=== PATIENT | female | born 1975 | race Caucasian/White ===

== ENCOUNTER 2019-09-22 05:34 | Emergency (ER) | payer OTHER, MEDICAID ==
[2019-09-22] MEDS ORDERED: Ketorolac 30 MG/ML SDV IVPUSH ONE (06:00)
[2019-09-22] MEDS ORDERED: diphenhydrAMINE 50 MG/ML SDV IVPUSH ONE (06:00)
[2019-09-22] MEDS ORDERED: Prochlorperazine 10 MG/2 ML SDV IVPUSH ONE (06:00)
[2019-09-22] MEDS ORDERED: Sodium Chloride 0.9% 1,000 ML IV ONE (06:01)
--- NOTE | 2019-09-22 06:01 | EDM.PDOC ---
ED HPI GENERAL MEDICAL PROBLEM - General Chief Complaint: Headache Stated Complaint: MIGRAINE, NAUSEA, VOMING, FEVER Time Seen by Provider: 09/22/19 05:56 Source of Information: Reports: Patient History Limitations: Reports: No Limitations - History of Present Illness INITIAL COMMENTS - FREE TEXT/NARRATIVE: States that she has a headache fever sore throat cough. Patient also has a history of migraines. Patient unable to take her migraine medicine. Patient also states that her boyfriend is feeling the same way she is. 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, Aspirin, NSAIDS head Pain Score (Numeric/FACES): 10 - Related Data Allergies Allergy/AdvReac Type Severity Reaction Status Date / Time No Known Allergies Allergy Verified 09/22/19 05:35 Home Meds: Home Meds ALPRAZolam [Alprazolam ER] 1 mg PO BID 09/22/19 [History] Ergocalciferol (Vitamin D2) [Vitamin D2] 50,000 units PO DAILY 09/22/19 [History ] FLUoxetine HCl [Prozac] 40 mg PO DAILY 09/22/19 [History] Folic Acid 2 mg PO DAILY 09/22/19 [History] Levothyroxine 112 mcg PO DAILY 09/22/19 [History] Past Medical History Cardiovascular History: Reports: High Cholesterol Musculoskeletal History: Reports: RA Neurological History: Reports: Migraines Psychiatric History: Reports: Anxiety, Depression Social & Family History - Family History Family Medical History: Noncontributory ED ROS GENERAL - Review of Systems Review Of Systems: See Below Constitutional: Reports: Weakness HEENT: Reports: Throat Pain Respiratory: Reports: Cough Cardiovascular: Reports: No Symptoms Endocrine: Reports: No Symptoms GI/Abdominal: Reports: Nausea, Vomiting : Reports: No Symptoms Musculoskeletal: Reports: Muscle Pain Skin: Reports: No Symptoms Neurological: Reports: Headache Psychiatric: Reports: No Symptoms Hematologic/Lymphatic: Reports: No Symptoms Immunologic: Reports: No Symptoms - Physical Exam Exam: See Below Exam Limited By: No Limitations General Appearance: Alert, WD/WN, Mild Distress Eye Exam: Bilateral Eye: PERRL Ears: Normal External Exam Nose: Normal Inspection Throat/Mouth: Normal Inspection Head Exam: Atraumatic, Normocephalic Neck: Normal Inspection, Supple, Non-Tender, Full Range of Motion Respiratory/Chest: No Respiratory Distress, Lungs Clear, Normal Breath Sounds, No Accessory Muscle Use Cardiovascular: Normal Peripheral Pulses, Regular Rate, Rhythm, No Edema GI/Abdominal: Normal Bowel Sounds (Female) Exam: Deferred Rectal (Female) Exam: Deferred Neuro Exam (Abbreviated): Alert, Oriented, CN II-XII Intact, Normal Cognition, Normal Reflexes, No Motor/Sensory Deficits Back Exam: Normal Inspection Extremities: Normal Inspection Psychiatric: Normal Affect Skin Exam: Warm, Dry, Intact Course - Vital Signs Text/Narrative:: she was negative for influenza and for strep. She feels much better with fluids and medication will be discharging patient diagnosis migraine Last Recorded V/S: Last Vital Signs Temp 97.7 F 09/22/19 05:40 Pulse 89 09/22/19 05:40 Resp 18 09/22/19 05:40 BP 133/84 09/22/19 05:40 Pulse Ox 96 09/22/19 05:40 - Orders/Labs/Meds Orders: Active Orders 24 hr Category Date Time Status CULTURE STREP A CONFIRMATION [] Stat Lab 09/22/19 05:53 Results STREP SCRN A RAPID W CULT CONF [] Stat Lab 09/22/19 05:53 Results Meds: Medications Discontinued Medications Generic Name Dose Route Start Last Admin Trade Name Sylvia PRN Reason Stop Dose Admin Diphenhydramine HCl 50 mg 09/22/19 06:00 09/22/19 06:05 Benadryl IVPUSH 09/22/19 06:01 50 mg ONETIME ONE Administration Sodium Chloride 1,000 mls @ 999 mls/hr 09/22/19 06:01 09/22/19 06:05 Normal Saline IV 09/22/19 07:01 999 mls/hr .Bolus ONE Administration Ketorolac Tromethamine 30 mg 09/22/19 06:00 09/22/19 06:06 Toradol IVPUSH 09/22/19 06:01 30 mg ONETIME ONE Administration Prochlorperazine Edisylate 10 mg 09/22/19 06:00 09/22/19 06:06 Compazine IVPUSH 09/22/19 06:01 10 mg ONETIME ONE Administration Departure - Departure Time of Disposition: 07:10 Disposition: Home, Self-Care 01 Condition: Good Clinical Impression: Migraine - Discharge Information Instructions: Migraine Headache, [id number] Referrals: Quentin Cano [Primary Care Provider] - Forms: ED Department Discharge Sepsis Event Note - Evaluation Sepsis Screening Result: No Definite Risk - Focused Exam Vital Signs: Vital Signs Temp Pulse Resp BP Pulse Ox 09/22/19 05:40 97.7 F 89 18 133/84 96 Date Exam was Performed: 09/22/19 Time Exam was Performed: 07:09 - My Orders Last 24 Hours: My Active Orders 09/22/19 05:53 CULTURE STREP A CONFIRMATION [RM] Stat STREP SCRN A RAPID W CULT CONF [RM] Stat - Assessment/Plan Last 24 Hours: My Active Orders 09/22/19 05:53 CULTURE STREP A CONFIRMATION [RM] Stat STREP SCRN A RAPID W CULT CONF [RM] Stat
== END 2019-09-22 07:27 | disposition home or self-care (01) ==
LOC: MW.ED 05:34
DX: G43.909 Migraine, unspecified, not intractable, without status migrainosus (principal); E78.00 Pure hypercholesterolemia, unspecified; M06.9 Rheumatoid arthritis, unspecified; F41.9 Anxiety disorder, unspecified; F32.9 Major depressive disorder, single episode, unspecified; Z79.899 Other long term (current) drug therapy
CPT/HCPCS: 87081; 87804; 87880; 96361; 96374; 96375; 99284; J0780; J1200; J1885; J7030

== ENCOUNTER 2020-07-05 07:56 | Day surgery (SDC) | payer OTHER, MEDICAID ==
[2020-07-02 10:12] LABS: BLOOD UREA NITROGEN,BUN 15 mg/dL (7.0-18.0); CARBON DIOXIDE,CO2 26.9 mmol/L (21.0-32.0); CHLORIDE,CL 103 mmol/L (98-107); GLUCOSE RANDOM 95 mg/dL (74-106); POTASSIUM,K 4.5 mmol/L (3.5-5.1); SODIUM,NA 137 mmol/L (136-145)
[~2020-07-05 07:56] MED LIST: Fluorescein 5 ML Vial ONE; Sodium Chloride 0.9% 10 ML SDV IV PRN; Sodium Chloride 0.9% 10 ML Syringe FLUSH PRN; Sodium Chloride 0.9% 2.5 ML Syringe FLUSH PRN; ceFAZolin 2 GM in Premix Bag 1 BAG IV ONE
[2020-07-05] MEDS: Lactated Ringers 1,000 ML IV SCH ×2 (08:25→13:18)
--- NOTE | 2020-07-05 08:57 | PCM.PREANE ---
Preanesthetic Assessment - Anesthesia/Transfusion/Family Hx Anesthesia History: Prior Anesthesia Without Reaction Other Type of Anesthesia Reaction Comment: "sometimes have a hard time waking up" Family History of Anesthesia Reaction: No Transfusion History: No Prior Transfusion(s) Intubation History: Unknown - Review of Systems General: No Symptoms Pulmonary: No Symptoms Cardiovascular: No Symptoms Gastrointestinal: No Symptoms Neurological: No Symptoms Other: Reports: None - Physical Assessment Vital Signs: Last Vital Signs Temp 36.4 C 07/05/20 08:04 Pulse 75 07/05/20 08:04 Resp 16 07/05/20 08:04 BP 118/82 07/05/20 08:04 Pulse Ox 96 07/05/20 08:04 Height: 5 ft 2 in Weight: 86.183 kg ASA Class: 2 Mental Status: Alert & Oriented x3 Airway Class: Mallampati = 2 Dentition: Reports: Normal Dentition (weneer x2 upper front teeth), [place](s) (x1 left upper (back)) Thyro-Mental Finger Breadths: 3 Mouth Opening Finger Breadths: 3 ROM/Head Extension: Full Lungs: Clear to Auscultation, Normal Respiratory Effort Cardiovascular: Regular Rate, Regular Rhythm - Lab Values: Laboratory Last Values WBC 6.48 K/uL (4.0-11.0) 07/02/20 09:45 RBC 4.37 M/uL (4.30-5.90) 07/02/20 09:45 Hgb 14.0 g/dL (12.0-16.0) 07/02/20 09:45 Hct 40.2 % (36.0-46.0) 07/02/20 09:45 MCV 92.0 fL (80.0-98.0) 07/02/20 09:45 MCH 32.0 pg (27.0-32.0) 07/02/20 09:45 MCHC 34.8 g/dL (31.0-37.0) 07/02/20 09:45 RDW Std Deviation 44.3 fl (28.0-62.0) 07/02/20 09:45 RDW Coeff of Elizabeth 13 % (11.0-15.0) 07/02/20 09:45 Plt Count 218 K/uL (150-400) 07/02/20 09:45 MPV 9.70 fL (7.40-12.00) 07/02/20 09:45 Nucleated RBC % 0.0 /100WBC 07/02/20 09:45 Nucleated RBCs # 0 K/uL 07/02/20 09:45 Sodium 137 mmol/L (136-145) 07/02/20 09:45 Potassium 4.5 mmol/L (3.5-5.1) 07/02/20 09:45 Chloride 103 mmol/L (98-107) 07/02/20 09:45 Carbon Dioxide 26.9 mmol/L (21.0-32.0) 07/02/20 09:45 BUN 15 mg/dL (7.0-18.0) 07/02/20 09:45 Creatinine 0.9 mg/dL (0.6-1.0) 07/02/20 09:45 Est Cr Clr Drug Dosing 63.75 mL/min 07/02/20 09:45 Estimated GFR (MDRD) > 60.0 ml/min 07/02/20 09:45 Glucose 95 mg/dL (74-106) 07/02/20 09:45 Calcium 9.0 mg/dL (8.5-10.1) 07/02/20 09:45 HCG, Qual NEGATIVE (NEG) 07/02/20 09:45 Blood Type A NEGATIVE 07/02/20 09:45 Antibody Screen NEGATIVE 07/02/20 09:45 - Allergies Allergies/Adverse Reactions: Allergies Allergy/AdvReac Type Severity Reaction Status Date / Time [id number] Reductase Allergy Swelling Verified 07/02/20 08:08 Inhibitor - Blood Blood Available: No - Anesthesia Plan Pre-Op Medication Ordered: None - Acknowledgements Anesthesia Type Planned: General Anesthesia Pt an Appropriate Candidate for the Planned Anesthesia: Yes Alternatives and Risks of Anesthesia Discussed w Pt/Guardian: Yes Pt/Guardian Understands and Agrees with Anesthesia Plan: Yes PreAnesthesia Questionnaire HEENT History: Reports: Other (See Below) Other HEENT History: reading glasses Cardiovascular History: Reports: High Cholesterol Respiratory History: Reports: None Gastrointestinal History: Reports: None, Other (See Below) (elevated LFTs) Genitourinary History: Reports: None 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 History: Reports: Endometriosis, Musculoskeletal History: Reports: RA Neurological History: Reports: Migraines Psychiatric History: Reports: ADD, Anxiety, Depression, Panic Attack, PTSD Endocrine/Metabolic History: Reports: Hypothyroidism, Obesity/BMI 30+ (BMI 34.8) Hematologic History: Reports: None Other Hematologic History: vitamin D deficiency Immunologic History: Reports: None Oncologic (Cancer) History: Reports: None Dermatologic History: Reports: Other (See Below) Other Dermatologic History: hidradenitis suppurativa - Past Surgical History Head Surgeries/Procedures: Reports: None HEENT Surgical History: Reports: None Cardiovascular Surgical History: Reports: None Respiratory Surgical History: Reports: None GI Surgical History: Reports: None Female Surgical History: Reports: Section, LEEP Other Female Surgeries/Procedures: laparoscopy for endometriosis Endocrine Surgical History: Reports: None Neurological Surgical History: Reports: None Musculoskeletal Surgical History: Reports: None Oncologic Surgical History: Reports: None Dermatological Surgical History: Reports: Plastic Surgical Reconstruction/Repair (abdominoplasty) - SUBSTANCE USE Smoking Status *Q: Former Smoker - HOME MEDS Home Medications: Home Meds ALPRAZolam [Alprazolam ER] 1 mg PO DAILY PRN 09/22/19 [History] Levothyroxine 112 mcg PO DAILY 09/22/19 [History] Amphetamine/Dextroamphetamine [Adderall] 20 mg PO ASDIRECTED 06/29/20 [History] Clindamycin Phosphate [Clindagel] 1 applic TOP DAILY 06/29/20 [History] Ergocalciferol (Vitamin D2) [Vitamin D2] 50 mcg PO DAILY 06/29/20 [History] Propranolol HCl [Propranolol HCl ER] 120 mg PO BEDTIME 06/29/20 [History] Rizatriptan Benzoate [Rizatriptan] 10 mg SL ASDIRECTED PRN 06/29/20 [History] clonazePAM [Clonazepam] 1 mg PO BID 06/29/20 [History] Multivitamin [Multivitamins] 1 tab PO DAILY 07/02/20 [History] - CURRENT (IN HOUSE) MEDS Current Meds: Current Medications Lactated Ringer's (Ringers, Lactated) 1,000 mls @ 125 mls/hr IV ASDIRECTED [facility] Last Admin: 07/05/20 08:25 Dose: 125 mls/hr Documented by: Sodium Chloride (Saline Flush) 10 ml FLUSH ASDIRECTED PRN PRN Reason: Keep Vein Open Sodium Chloride (Saline Flush) 2.5 ml FLUSH ASDIRECTED PRN PRN Reason: Keep Vein Open Sodium Chloride (Normal Saline) 10 ml IV ASDIRECTED PRN PRN Reason: IV Use Discontinued Medications Fluorescein Sodium (Ak-Fluor) Confirm Administered Dose 5 ml .ROUTE .STK-MED ONE Stop: 07/05/20 07:30 Cefazolin Sodium/Dextrose 2 gm (/ Premix) 50 mls @ 100 mls/hr IV ONETIME ONE Stop: 07/02/20 09:51
[2020-07-05] MEDS ORDERED: fentaNYL 250 MCG/5 ML SDV ONE (09:47)
[2020-07-05] MEDS ORDERED: Midazolam 1 MG/ML 2 ML SDV ONE (09:47)
[2020-07-05] MEDS ORDERED: Propofol 200 MG/20 ML SDV ONE (09:47)
[2020-07-05] MEDS ORDERED: Ondansetron 4 MG/2 ML SDV ONE (09:47)
[2020-07-05] MEDS ORDERED: Rocuronium Bromide 50 MG/5 ML Syringe ONE (09:49)
[2020-07-05] MEDS ORDERED: ceFAZolin/Dextrose,Iso-Osmotic 2 GM/50 ML Duplex Bag IV ONE (09:49)
[2020-07-05] MEDS ORDERED: Dexamethasone 4 MG/ML 5 ML MDV ONE (10:08)
[2020-07-05] MEDS ORDERED: Metoclopramide 10 MG/2 ML SDV ONE (10:08)
[2020-07-05] MEDS ORDERED: HYDROmorphone 2 MG/ML Syringe ONE (10:18)
[2020-07-05] MEDS ORDERED: Furosemide 40 MG/4 ML VIAL ONE (11:18)
[2020-07-05] MEDS ORDERED: Octyl 2-Cyanoacrylate 1 Tube ONE ×2 (11:35→11:46)
[2020-07-05] MEDS ORDERED: Glycopyrrolate 0.2 MG/ML SDV ONE (11:39)
[2020-07-05] MEDS ORDERED: Acetaminophen/oxyCODONE 325-5 MG Tab PO PRN (11:46)
[2020-07-05] MEDS ORDERED: Ketorolac 30 MG/ML SDV IVPUSH ONE (11:46)
[2020-07-05] MEDS ORDERED: Promethazine 25 MG/ML SDV IM PRN (11:46)
[2020-07-05] MEDS ORDERED: Ondansetron 4 MG/2 ML SDV IVPUSH PRN (11:46)
[2020-07-05] MEDS ORDERED: Ketorolac 30 MG/ML SDV ONE (11:53)
[2020-07-05] MEDS: Morphine 4 MG/ML Syringe IVPUSH PRN ×2 (12:11→14:09)
--- NOTE | 2020-07-05 14:32 | PCM.POSTAN ---
POST ANESTHESIA ASSESSMENT - MENTAL STATUS Mental Status: Alert, Oriented - VITAL SIGNS Vital Signs: Last Vital Signs Temp 98.4 C H 07/05/20 12:35 Pulse 80 07/05/20 13:20 Resp 18 07/05/20 13:20 BP 109/62 07/05/20 13:20 Pulse Ox 100 07/05/20 13:20 - RESPIRATORY Respiratory Status: Respiratory Rate WNL, Airway Patent, O2 Saturation Stable - CARDIOVASCULAR CV Status: Pulse Rate WNL, Blood Pressure Stable - GASTROINTESTINAL GI Status: No Symptoms - PAIN Pain Score: 5 - POST OP HYDRATION Hydration Status: Adequate & Stable - OBSERVATIONS Free Text/Narrative:: No anesthesia problems
[2020-07-05] MEDS: Acetaminophen/oxyCODONE 325-5 MG Tab PO PRN (18:05)
[2020-07-05] MEDS: Ketorolac 30 MG/ML SDV IVPUSH PRN (19:54)
[2020-07-06] MEDS: Acetaminophen/oxyCODONE 325-5 MG Tab PO PRN ×2 (00:04→06:27)
[2020-07-06] MEDS: Ketorolac 30 MG/ML SDV IVPUSH PRN ×2 (03:18→09:25)
[2020-07-06 06:47] LABS: BLOOD UREA NITROGEN,BUN 12 mg/dL (7.0-18.0); CARBON DIOXIDE,CO2 28.1 mmol/L (21.0-32.0); CHLORIDE,CL 104 mmol/L (98-107); GLUCOSE RANDOM 129 mg/dL (74-106); POTASSIUM,K 3.9 mmol/L (3.5-5.1); SODIUM,NA 139 mmol/L (136-145)
--- NOTE | 2020-07-06 09:35 | PCM48HPAN ---
Post Anesthesia Note - EVALUATION WITHIN 48HRS OF ANESTHETIC Vital Signs in Normal Range: Yes Patient Participated in Evaluation: Yes Respiratory Function Stable: Yes Airway Patent: Yes Cardiovascular Function Stable: Yes Hydration Status Stable: Yes Pain Control Satisfactory: Yes Nausea and Vomiting Control Satisfactory: Yes Mental Status Recovered: Yes Vital Signs: Last Vital Signs Temp 36.9 C 07/06/20 09:26 Pulse 77 07/06/20 09:26 Resp 16 07/06/20 03:24 BP 105/68 07/06/20 09:26 Pulse Ox 96 07/06/20 03:24 - COMMENTS/OBSERVATIONS Free Text/Narrative:: No anesthesia problems
--- NOTE | 2020-07-06 09:40 | PCM.SURGPN ---
- General Info Date of Service: 07/06/20 POD#: 1 Functional Status: Reports: Pain Controlled - Review of Systems General: Reports: No Symptoms HEENT: Reports: No Symptoms Pulmonary: Reports: No Symptoms Cardiovascular: Reports: No Symptoms Gastrointestinal: Reports: No Symptoms Genitourinary: Reports: No Symptoms Musculoskeletal: Reports: No Symptoms Skin: Reports: No Symptoms Neurological: Reports: No Symptoms Psychiatric: Reports: No Symptoms - Patient Data Vitals - Most Recent: Last Vital Signs Temp 36.9 C 07/06/20 09:26 Pulse 77 07/06/20 09:26 Resp 16 07/06/20 03:24 BP 105/68 07/06/20 09:26 Pulse Ox 96 07/06/20 03:24 Weight - Most Recent: 86.183 kg Lab Results Last 24 Hrs: Laboratory Results - last 24 hr 07/06/20 07/06/20 Range/Units 05:07 05:07 WBC 11.40 H (4.0-11.0) K/uL RBC 3.76 L (4.30-5.90) M/uL Hgb 11.9 L (12.0-16.0) g/dL Hct 35.2 L (36.0-46.0) % MCV 93.6 (80.0-98.0) fL MCH 31.6 (27.0-32.0) pg MCHC 33.8 (31.0-37.0) g/dL RDW Std Deviation 46.3 (28.0-62.0) fl RDW Coeff of Elizabeth 14 (11.0-15.0) % Plt Count 220 (150-400) K/uL MPV 10.20 (7.40-12.00) fL Neut % (Auto) 73.8 (48.0-80.0) % Lymph % (Auto) 21.8 (16.0-40.0) % [place] % (Auto) 4.3 (0.0-15.0) % Eos % (Auto) 0.0 (0.0-7.0) % Baso % (Auto) 0.1 (0.0-1.5) % Neut # (Auto) 8.4 H (1.4-5.7) K/uL Lymph # (Auto) 2.5 H (0.6-2.4) K/uL [place] # (Auto) 0.5 (0.0-0.8) K/uL Eos # (Auto) 0.0 (0.0-0.7) K/uL Baso # (Auto) 0.0 (0.0-0.1) K/uL Nucleated RBC % 0.0 /100WBC Nucleated RBCs # 0 K/uL Sodium 139 (136-145) mmol/L Potassium 3.9 (3.5-5.1) mmol/L Chloride 104 (98-107) mmol/L Carbon Dioxide 28.1 (21.0-32.0) mmol/L BUN 12 (7.0-18.0) mg/dL Creatinine 0.9 (0.6-1.0) mg/dL Est Cr Clr Drug Dosing 63.75 mL/min Estimated GFR (MDRD) > 60.0 ml/min Glucose 129 H (74-106) mg/dL Calcium 8.7 (8.5-10.1) mg/dL Med Orders - Current: Current Medications Lactated Ringer's (Ringers, Lactated) 1,000 mls @ 125 mls/hr IV ASDIRECTED [facility] Last Admin: 07/05/20 13:18 Dose: 125 mls/hr Documented by: Ketorolac Tromethamine (Toradol) 30 mg IVPUSH Q6H PRN PRN Reason: Pain (severe 7-10) Stop: 07/10/20 18:01 Last Admin: 07/06/20 09:25 Dose: 30 mg Documented by: Morphine Sulfate (Morphine) 4 mg IVPUSH Q2H PRN PRN Reason: Pain (severe 7-10) Last Admin: 07/05/20 14:09 Dose: 4 mg Documented by: Ondansetron HCl (Zofran) 4 mg IVPUSH Q6H PRN PRN Reason: Nausea/Vomiting Last Admin: 07/05/20 11:00 Dose: 4 mg Documented by: Oxycodone/Acetaminophen (Percocet 325-5 Mg) 1 tab PO Q4H PRN PRN Reason: Pain (moderate 4-6) Oxycodone/Acetaminophen (Percocet 325-5 Mg) 2 tab PO Q4H PRN PRN Reason: Pain (moderate 4-6) Last Admin: 07/06/20 06:27 Dose: 2 tab Documented by: Promethazine HCl (Phenergan) 25 mg IM Q6H PRN PRN Reason: Nausea/Vomiting Sodium Chloride (Saline Flush) 10 ml FLUSH ASDIRECTED PRN PRN Reason: Keep Vein Open Sodium Chloride (Saline Flush) 2.5 ml FLUSH ASDIRECTED PRN PRN Reason: Keep Vein Open Sodium Chloride (Normal Saline) 10 ml IV ASDIRECTED PRN PRN Reason: IV Use Discontinued Medications Cefazolin Sodium/Dextrose (Ancef) Confirm Administered Dose 2 gm IV .STK-MED ONE Stop: 07/05/20 09:50 Dexamethasone (Dexamethasone) Confirm Administered Dose 20 mg .ROUTE .STK-MED ONE Stop: 07/05/20 10:09 Fentanyl (Sublimaze) Confirm Administered Dose 250 mcg .ROUTE .STK-MED ONE Stop: 07/05/20 09:48 Fluorescein Sodium (Ak-Fluor) Confirm Administered Dose 5 ml .ROUTE .STK-MED ONE Stop: 07/05/20 07:30 Furosemide (Lasix) Confirm Administered Dose 40 mg .ROUTE .STK-MED ONE Stop: 07/05/20 11:19 Glycopyrrolate (Robinul) Confirm Administered Dose 0.2 mg .ROUTE .STK-MED ONE Stop: 07/05/20 11:40 Hydromorphone HCl (Dilaudid) Confirm Administered Dose 2 mg .ROUTE .STK-MED ONE Stop: 07/05/20 10:19 Cefazolin Sodium/Dextrose 2 gm (/ Premix) 50 mls @ 100 mls/hr IV ONETIME ONE Stop: 07/02/20 09:51 Ketorolac Tromethamine (Toradol) 30 mg IVPUSH ONETIME ONE Stop: 07/05/20 11:47 Last Admin: 07/05/20 12:07 Dose: 30 mg Documented by: Ketorolac Tromethamine (Toradol) Confirm Administered Dose 30 mg .ROUTE .STK-MED ONE Stop: 07/05/20 11:54 Lidocaine HCl (Xylocaine-Mpf 1%) Confirm Administered Dose 5 ml .ROUTE .STK-MED ONE Stop: 07/05/20 09:48 Metoclopramide HCl (Reglan) Confirm Administered Dose 10 mg .ROUTE .STK-MED ONE Stop: 07/05/20 10:09 Midazolam HCl (Versed 1 Mg/Ml) Confirm Administered Dose 2 mg .ROUTE .STK-MED ONE Stop: 07/05/20 09:48 Octyl Cyanoacrylate (Dermabond Advance) Confirm Administered Dose 1 applic .ROUTE .STK-MED ONE Stop: 07/05/20 11:36 Octyl Cyanoacrylate (Dermabond Advance) Confirm Administered Dose 1 applic .ROUTE .STK-MED ONE Stop: 07/05/20 11:47 Ondansetron HCl (Zofran) Confirm Administered Dose 4 mg .ROUTE .STK-MED ONE Stop: 07/05/20 09:48 Propofol (Diprivan 20 Ml) Confirm Administered Dose 200 mg .ROUTE .STK-MED ONE Stop: 07/05/20 09:48 Rocuronium [place] (Rocuronium [place]ura) Confirm Administered Dose 50 mg .ROUTE .STK-MED ONE Stop: 07/05/20 09:50 - Exam Wound/Incisions: Healing Well, Dressing Dry and Intact General: Alert, Oriented HEENT: Pupils Equal Neck: Supple Lungs: Clear to Auscultation, Normal Respiratory Effort Cardiovascular: Regular Rate, Regular Rhythm GI/Abdominal Exam: Normal Bowel Sounds, Soft, Non-Tender, No Organomegaly, No Distention, No Abnormal Bruit, No Mass, Pelvis Stable Extremities: Normal Inspection, Normal Range of Motion, Non-Tender, No Pedal Edema, Normal Capillary Refill Skin: Warm, Dry, Intact Neurological: No New Focal Deficit Psy/Mental Status: Alert, Normal Affect, Normal Mood Sepsis Event Note - Evaluation Sepsis Screening Result: No Definite Risk - Focused Exam Vital Signs: Vital Signs Temp Pulse Resp BP Pulse Ox 07/06/20 09:26 36.9 C 77 105/68 07/06/20 03:24 36.6 C 70 16 108/77 96 07/06/20 00:48 36.6 C 78 18 100/65 97 - Problem List Review Problem List Initiated/Reviewed/Updated: Yes - My Orders Last 24 Hours: Active Orders 24 hr Category Date Time Status Patient Status [ADT] Routine ADT 07/05/20 11:46 Active Antiembolic Devices [RC] PER UNIT ROUTINE Care 07/05/20 11:47 Active Notify Provider Vital Signs [RC] ASDIRECTED Care 07/05/20 11:46 Active Oxygen Therapy [RC] ASDIRECTED Care 07/05/20 11:46 Active RT Incentive Spirometry [RC] Q2HWA Care 07/05/20 11:46 Active Up With Assistance [RC] PER UNIT ROUTINE Care 07/05/20 11:46 Active Up ad Ella [RC] PER UNIT ROUTINE Care 07/05/20 11:46 Active Regular Diet [DIET] Diet 07/05/20 Dinner Active Acetaminophen/oxyCODONE [Percocet 325-5 MG] Med 07/05/20 11:46 Active 1 tab PO Q4H PRN Acetaminophen/oxyCODONE [Percocet 325-5 MG] Med 07/05/20 11:46 Active 2 tab PO Q4H PRN Ketorolac [Toradol] Med 07/05/20 18:00 Active 30 mg IVPUSH Q6H PRN Morphine Med 07/05/20 11:46 Active 4 mg IVPUSH Q2H PRN Ondansetron [Zofran] Med 07/05/20 11:46 Active 4 mg IVPUSH Q6H PRN Promethazine [Phenergan] Med 07/05/20 11:46 Active 25 mg IM Q6H PRN Peripheral IV Discontinue [OM.PC] Routine Oth 07/05/20 11:46 Ordered Sequential Compression Device [OM.PC] Per Unit Routine Oth 07/05/20 11:46 Ordered Resuscitation Status Routine Resus Stat 07/05/20 11:46 Ordered Medication Orders Lactated Ringer's (Ringers, Lactated) 1,000 mls @ 125 mls/hr IV ASDIRECTED [facility] Last Admin: 07/05/20 13:18 Dose: 125 mls/hr Documented by: Infusion: 07/05/20 13:18 Dose: 125 mls/hr Documented by: Admin: 07/05/20 08:25 Dose: 125 mls/hr Documented by: LUCIO Ketorolac Tromethamine (Toradol) 30 mg IVPUSH Q6H PRN PRN Reason: Pain (severe 7-10) Stop: 07/10/20 18:01 Last Admin: 07/06/20 09:25 Dose: 30 mg Documented by: Admin: 07/06/20 03:18 Dose: 30 mg Documented by: Admin: 07/05/20 19:54 Dose: 30 mg Documented by: JES Morphine Sulfate (Morphine) 4 mg IVPUSH Q2H PRN PRN Reason: Pain (severe 7-10) Last Admin: 07/05/20 14:09 Dose: 4 mg Documented by: Admin: 07/05/20 12:11 Dose: 4 mg Documented by: CODY Ondansetron HCl (Zofran) 4 mg IVPUSH Q6H PRN PRN Reason: Nausea/Vomiting Last Admin: 07/05/20 11:00 Dose: 4 mg Documented by: CODY Oxycodone/Acetaminophen (Percocet 325-5 Mg) 1 tab PO Q4H PRN PRN Reason: Pain (moderate 4-6) Oxycodone/Acetaminophen (Percocet 325-5 Mg) 2 tab PO Q4H PRN PRN Reason: Pain (moderate 4-6) Last Admin: 07/06/20 06:27 Dose: 2 tab Documented by: Admin: 07/06/20 00:04 Dose: 2 tab Documented by: Admin: 07/05/20 18:05 Dose: 2 tab Documented by: LAKESHA Promethazine HCl (Phenergan) 25 mg IM Q6H PRN PRN Reason: Nausea/Vomiting Sodium Chloride (Saline Flush) 10 ml FLUSH ASDIRECTED PRN PRN Reason: Keep Vein Open Sodium Chloride (Saline Flush) 2.5 ml FLUSH ASDIRECTED PRN PRN Reason: Keep Vein Open Sodium Chloride (Normal Saline) 10 ml IV ASDIRECTED PRN PRN Reason: IV Use - Assessment Assessment (Free Text/Narrative):: Status post total laparoscopic hysterectomy patient is doing well ambulatory on regular diet incision is clear and dry voiding without any problem will vaginal bleeding. Lab work is unremarkable. - Plan Plan (Free Text/Narrative):: I am sending the patient home with the postvasectomy instruction there is no restriction on her diet the patient given Narco 5/325 for postoperative pain. The patient to come to the office in one week for late postoperative checkup
--- NOTE | 2020-07-06 09:41 | PCM.DCSUM1 ---
Discharge Summary - Hospital Course Diagnosis: Stroke: No - Discharge Data Discharge Date: 07/06/20 Discharge Disposition: Home, Self-Care 01 Condition: Good - Referral to Home Health Primary Care Physician: Gustavo Linton MD - Patient Instructions Diet: Usual Diet as Tolerated Activity: As Tolerated Driving: Do Not Drive Showering/Bathing: May Shower Notify Provider of: Fever, Increased Pain, Swelling and Redness, Nausea and/or Vomiting - Discharge Plan Home Medications: Home Meds ALPRAZolam [Alprazolam ER] 1 mg PO DAILY PRN 09/22/19 [History] Levothyroxine 112 mcg PO DAILY 09/22/19 [History] Amphetamine/Dextroamphetamine [Adderall] 20 mg PO ASDIRECTED 06/29/20 [History] Clindamycin Phosphate [Clindagel] 1 applic TOP DAILY 06/29/20 [History] Ergocalciferol (Vitamin D2) [Vitamin D2] 50 mcg PO DAILY 06/29/20 [History] Propranolol HCl [Propranolol HCl ER] 120 mg PO BEDTIME 06/29/20 [History] Rizatriptan Benzoate [Rizatriptan] 10 mg SL ASDIRECTED PRN 06/29/20 [History] clonazePAM [Clonazepam] 1 mg PO BID 06/29/20 [History] Multivitamin [Multivitamins] 1 tab PO DAILY 07/02/20 [History] Patient Handouts: Laparoscopically Assisted Vaginal Hysterectomy, Care After Referrals: [facility] [Outside] Gustavo Linton MD [Primary Care Provider] - 07/11/20 8:30 am - Discharge Summary/Plan Comment DC Time >30 min.: Yes - General Info Date of Service: 07/06/20 Functional Status: Reports: Pain Controlled - Review of Systems General: Reports: No Symptoms HEENT: Reports: No Symptoms Pulmonary: Reports: No Symptoms Cardiovascular: Reports: No Symptoms Gastrointestinal: Reports: No Symptoms Genitourinary: Reports: No Symptoms Musculoskeletal: Reports: No Symptoms Skin: Reports: No Symptoms Neurological: Reports: No Symptoms Psychiatric: Reports: No Symptoms - Patient Data Vitals - Most Recent: Last Vital Signs Temp 36.9 C 07/06/20 09:26 Pulse 77 07/06/20 09:26 Resp 16 07/06/20 03:24 BP 105/68 07/06/20 09:26 Pulse Ox 96 07/06/20 03:24 Weight - Most Recent: 86.183 kg Lab Results - Last 24 hrs: Laboratory Results - last 24 hr 07/06/20 07/06/20 Range/Units 05:07 05:07 WBC 11.40 H (4.0-11.0) K/uL RBC 3.76 L (4.30-5.90) M/uL Hgb 11.9 L (12.0-16.0) g/dL Hct 35.2 L (36.0-46.0) % MCV 93.6 (80.0-98.0) fL MCH 31.6 (27.0-32.0) pg MCHC 33.8 (31.0-37.0) g/dL RDW Std Deviation 46.3 (28.0-62.0) fl RDW Coeff of Elizabeth 14 (11.0-15.0) % Plt Count 220 (150-400) K/uL MPV 10.20 (7.40-12.00) fL Neut % (Auto) 73.8 (48.0-80.0) % Lymph % (Auto) 21.8 (16.0-40.0) % Falls % (Auto) 4.3 (0.0-15.0) % Eos % (Auto) 0.0 (0.0-7.0) % Baso % (Auto) 0.1 (0.0-1.5) % Neut # (Auto) 8.4 H (1.4-5.7) K/uL Lymph # (Auto) 2.5 H (0.6-2.4) K/uL Falls # (Auto) 0.5 (0.0-0.8) K/uL Eos # (Auto) 0.0 (0.0-0.7) K/uL Baso # (Auto) 0.0 (0.0-0.1) K/uL Nucleated RBC % 0.0 /100WBC Nucleated RBCs # 0 K/uL Sodium 139 (136-145) mmol/L Potassium 3.9 (3.5-5.1) mmol/L Chloride 104 (98-107) mmol/L Carbon Dioxide 28.1 (21.0-32.0) mmol/L BUN 12 (7.0-18.0) mg/dL Creatinine 0.9 (0.6-1.0) mg/dL Est Cr Clr Drug Dosing 63.75 mL/min Estimated GFR (MDRD) > 60.0 ml/min Glucose 129 H (74-106) mg/dL Calcium 8.7 (8.5-10.1) mg/dL Med Orders - Current: Current Medications Lactated Ringer's (Ringers, Lactated) 1,000 mls @ 125 mls/hr IV ASDIRECTED ALFREDA Last Admin: 07/05/20 13:18 Dose: 125 mls/hr Documented by: Ketorolac Tromethamine (Toradol) 30 mg IVPUSH Q6H PRN PRN Reason: Pain (severe 7-10) Stop: 07/10/20 18:01 Last Admin: 07/06/20 09:25 Dose: 30 mg Documented by: Morphine Sulfate (Morphine) 4 mg IVPUSH Q2H PRN PRN Reason: Pain (severe 7-10) Last Admin: 07/05/20 14:09 Dose: 4 mg Documented by: Ondansetron HCl (Zofran) 4 mg IVPUSH Q6H PRN PRN Reason: Nausea/Vomiting Last Admin: 07/05/20 11:00 Dose: 4 mg Documented by: Oxycodone/Acetaminophen (Percocet 325-5 Mg) 1 tab PO Q4H PRN PRN Reason: Pain (moderate 4-6) Oxycodone/Acetaminophen (Percocet 325-5 Mg) 2 tab PO Q4H PRN PRN Reason: Pain (moderate 4-6) Last Admin: 07/06/20 06:27 Dose: 2 tab Documented by: Promethazine HCl (Phenergan) 25 mg IM Q6H PRN PRN Reason: Nausea/Vomiting Sodium Chloride (Saline Flush) 10 ml FLUSH ASDIRECTED PRN PRN Reason: Keep Vein Open Sodium Chloride (Saline Flush) 2.5 ml FLUSH ASDIRECTED PRN PRN Reason: Keep Vein Open Sodium Chloride (Normal Saline) 10 ml IV ASDIRECTED PRN PRN Reason: IV Use Discontinued Medications Cefazolin Sodium/Dextrose (Ancef) Confirm Administered Dose 2 gm IV .STK-MED ONE Stop: 07/05/20 09:50 Dexamethasone (Dexamethasone) Confirm Administered Dose 20 mg .ROUTE .STK-MED ONE Stop: 07/05/20 10:09 Fentanyl (Sublimaze) Confirm Administered Dose 250 mcg .ROUTE .ST-MED ONE Stop: 07/05/20 09:48 Fluorescein Sodium (Ak-Fluor) Confirm Administered Dose 5 ml .ROUTE .STK-MED ONE Stop: 07/05/20 07:30 Furosemide (Lasix) Confirm Administered Dose 40 mg .ROUTE .STK-MED ONE Stop: 07/05/20 11:19 Glycopyrrolate (Robinul) Confirm Administered Dose 0.2 mg .ROUTE .STK-MED ONE Stop: 07/05/20 11:40 Hydromorphone HCl (Dilaudid) Confirm Administered Dose 2 mg .ROUTE .ST-MED ONE Stop: 07/05/20 10:19 Cefazolin Sodium/Dextrose 2 gm (/ Premix) 50 mls @ 100 mls/hr IV ONETIME ONE Stop: 07/02/20 09:51 Ketorolac Tromethamine (Toradol) 30 mg IVPUSH ONETIME ONE Stop: 07/05/20 11:47 Last Admin: 07/05/20 12:07 Dose: 30 mg Documented by: Ketorolac Tromethamine (Toradol) Confirm Administered Dose 30 mg .ROUTE .ST-MED ONE Stop: 07/05/20 11:54 Lidocaine HCl (Xylocaine-Mpf 1%) Confirm Administered Dose 5 ml .ROUTE .STK-MED ONE Stop: 07/05/20 09:48 Metoclopramide HCl (Reglan) Confirm Administered Dose 10 mg .ROUTE .ST-MED ONE Stop: 07/05/20 10:09 Midazolam HCl (Versed 1 Mg/Ml) Confirm Administered Dose 2 mg .ROUTE .ST-MED ONE Stop: 07/05/20 09:48 Octyl Cyanoacrylate (Dermabond Advance) Confirm Administered Dose 1 applic .ROUTE .STK-MED ONE Stop: 07/05/20 11:36 Octyl Cyanoacrylate (Dermabond Advance) Confirm Administered Dose 1 applic .ROUTE .ST-MED ONE Stop: 07/05/20 11:47 Ondansetron HCl (Zofran) Confirm Administered Dose 4 mg .ROUTE .STK-MED ONE Stop: 07/05/20 09:48 Propofol (Diprivan 20 Ml) Confirm Administered Dose 200 mg .ROUTE .STK-MED ONE Stop: 07/05/20 09:48 Rocuronium [place] (Rocuronium [place]) Confirm Administered Dose 50 mg .ROUTE .STK-MED ONE Stop: 07/05/20 09:50 - Exam General: Reports: Alert, Oriented HEENT: Reports: Pupils Equal, Pupils Reactive, EOMI, Mucous Membr. Moist/[place]: Reports: Supple Lungs: Reports: Clear to Auscultation, Normal Respiratory Effort Cardiovascular: Reports: Regular Rate, Regular Rhythm GI/Abdominal Exam: Normal Bowel Sounds, Soft, Non-Tender, No Organomegaly, No Distention, No Abnormal Bruit, No Mass, Pelvis Stable (Female) Exam: Normal External Exam, Normal Speculum Exam, Normal Bimanual Exam Rectal (Female) Exam: Normal Exam, Normal Rectal Tone Back Exam: Reports: Normal Inspection, Full Range of Motion Extremities: Normal Inspection, Normal Range of Motion, Non-Tender, No Pedal Edema, Normal Capillary Refill Skin: Reports: Warm, Dry, Intact Wound/Incisions: Reports: Healing Well Neurological: Reports: No New Focal Deficit Psy/Mental Status: Reports: Alert, Normal Affect, Normal Mood
--- NOTE | 2020-07-06 11:21 | OR ---
SURGEON: Gustavo Linton MD DATE OF PROCEDURE: 07/05/2020 PREOPERATIVE DIAGNOSIS: Menometrorrhagia. POSTOPERATIVE DIAGNOSIS: Menometrorrhagia. OPERATIONS PERFORMED: Total laparoscopic hysterectomy and laparoscopic bilateral salpingectomy, preserving both ovaries, and cystoscopy. PRIMARY SURGEON: Gustavo Linton MD OUTBOUND SALES AGENT: Linda Roger. ANESTHESIA: General with endotracheal intubation, Amy Cunningham and Dr. Sanders. ESTIMATED BLOOD LOSS: Less than 100 mL. COMPLICATIONS: None. FINDINGS: Uterus is about 10-week size. There is some adhesion from her previous section around the lower uterine segment. PROCEDURE IN DETAIL: The patient was brought to the OR, properly identified, and after adequate level of general anesthesia, the patient placed in lithotomy position with an access to the abdomen and vagina. A Whelan catheter was placed in the bladder for drainage and colpotomizer manipulator placed in the uterus for manipulation, and after deploying and deflating all the balloons, the surgeon changed his gloves and the operation shifted abdominally. A stab wound done beneath the umbilicus and the Veress needle was placed in the peritoneal cavity and that cavity insufflated with 3.5 carbon dioxide, and utilizing Visiport technique, the central trocar beneath the umbilicus was entered under direct vision. Once we were in the peritoneum and the patient placed in steep Trendelenburg and 10/12 trocar placed in the left iliac fossa and 5 mm trocar in the right iliac fossa, the operation started by identifying the landmark of the anatomy. Then using the Sujit Harmonic scalpel, the superior pedicle coagulated and transected. Tubes were included the specimen and ovary was preserved on both sides. Then, the round ligament was done in the same way and then the anterior leaf of the broad ligament dissected down medially and then met at the midline. With sharp and blunt dissection, the bladder was dissected completely away from the lower uterine segment. The uterine vessel was visible right now at the level of the manipulator, and using the Sujit Harmonic scalpel, the uterine vessel coagulated and transected. Once that was done, then the vagina was entered in a circular manner using the Sujit Harmonic scalpel, detaching the cervix from its attachment to the vagina. The uterus, tubes, and ovary removed vaginally and then pneumoperitoneum re-established by placing vaginal pack in the vagina and then thorough irrigation of the operative field. There was no oozing, no bleeding. We proceeded to close the vaginal cuff laparoscopically using 2-0 PDS interrupted sutures. While we were doing that, we asked Anesthesia to give the patient fluorescein, and after closing the vagina, the abdomen deflated and the Whelan catheter was removed, cystoscopy was performed. The bladder was intact. Both ureteric orifices were seen with the dye coming from both of them, thus the patency of both ureters verified. Satisfied with these finding, the procedure was ended. The instrument and sponge count was correct. The patient tolerated the procedure well, went to recovery room in stable general condition. MARIAN / OLENA /[id number]
== END 2020-07-06 09:35 | disposition home or self-care (01) ==
LOC: MW.SDS 07:56 → MW.OB 12:11 → MW.SDS 07-06 09:35
PROVIDERS: ATTEND Obstetrics & Gynecology
DX: D25.1 Intramural leiomyoma of uterus (principal); D25.0 Submucous leiomyoma of uterus; N83.8 Other noninflammatory disorders of ovary, fallopian tube and broad ligament; E03.9 Hypothyroidism, unspecified; F98.8 Other specified behavioral and emotional disorders with onset usually occurring in childhood and adolescence; E78.00 Pure hypercholesterolemia, unspecified; E66.9 Obesity, unspecified; F41.9 Anxiety disorder, unspecified; F32.9 Major depressive disorder, single episode, unspecified; Z79.899 Other long term (current) drug therapy; Z79.890 Hormone replacement therapy; Z88.8 Allergy status to other drugs, medicaments and biological substances; Z98.890 Other specified postprocedural states; Z87.891 Personal history of nicotine dependence; Z68.34 Body mass index [BMI] 34.0-34.9, adult
CPT/HCPCS: 36415; 58571; 80048; 84703; 85025; 85027; 86850; 86900; 86901; 88307; A9270; J0690; J1100; J1170; J1885; J1940; J2001; J2250; J2270; J2405; J2704; J2765; J3010; J3490; J7120; 00840

== ENCOUNTER 2023-02-25 14:13 | Emergency (ER) | payer MEDICAID, OTHER ==
[2023-02-25 14:57] LABS: BASOPHILS PERCENT AUTO 0.6 % (0.0-1.5); EOSINOPHILS ABSOLUTE AUTO 0.2 K/uL (0.0-0.7); EOSINOPHILS PERCENT AUTO 3.3 % (0.0-7.0); HEMATOCRIT 39.2 % (36.0-46.0); HEMOGLOBIN 13.4 g/dL (12.0-16.0); LYMPHOCYTES ABSOLUTE AUTO 1.6 K/uL (0.6-2.4); LYMPHOCYTES PERCENT AUTO 25.6 % (16.0-40.0); MEAN CORPUSCULAR HEMOGLOBIN 31.5 pg (27.0-32.0); MEAN CORPUSCULAR HGB CONC 34.2 g/dL (31.0-37.0); MEAN CORPUSCULAR VOLUME 92.2 fL (80.0-98.0); MONOCYTES ABSOLUTE AUTO 0.4 K/uL (0.0-0.8); MONOCYTES PERCENT AUTO 5.8 % (0.0-15.0); NEUTROPHILS ABSOLUTE AUTO 4.1 K/uL (1.4-5.7); NEUTROPHILS PERCENT AUTO 64.7 % (48.0-80.0); PLATELET COUNT,PLT 192 K/uL (150-400); RED BLOOD CELL COUNT 4.25 M/uL (4.30-5.90); WHITE BLOOD CELL COUNT,WBC 6.36 K/uL (4.0-11.0)
[2023-02-25] MEDS ORDERED: methylPREDNISolone Sodium Succinate 125 MG/2 ML SDV IM ONE (14:59)
[2023-02-25 15:28] LABS: A/G RATIO 0.9 (0.9-1.6); ALBUMIN 3.4 g/dL (3.4-5.0); BILIRUBIN TOTAL 0.4 mg/dL (0.2-1.0); C-REACTIVE PROTEIN 1.8 mg/dL (0.00-0.90); CALCIUM 8.6 mg/dL (8.5-10.1); CARBON DIOXIDE,CO2 28.2 mmol/L (21.0-32.0); CREATININE 0.9 mg/dL (0.6-1.0); EST CRCL DRUG DOSING (CG) 70.28 mL/min; POTASSIUM,K 4.1 mmol/L (3.5-5.1); PROTEIN TOTAL,TP 7.3 g/dL (6.4-8.2)
== END 2023-02-25 16:31 | disposition home or self-care (01) ==
LOC: MW.ED 14:13
DX: M25.50 Pain in unspecified joint (principal); Z91.148 Patient's other noncompliance with medication regimen for other reason; E66.9 Obesity, unspecified; Z68.36 Body mass index [BMI] 36.0-36.9, adult; Z88.8 Allergy status to other drugs, medicaments and biological substances; Z88.2 Allergy status to sulfonamides
CPT/HCPCS: 36415; 80053; 83880; 85025; 85652; 86140; 96372; 99283; J2930

== ENCOUNTER 2023-09-16 23:50 | Emergency (ER) | payer OTHER, MEDICAID ==
[2023-09-17] MEDS ORDERED: Diazepam 5 MG Tab PO ONE (01:47)
[2023-09-17] MEDS ORDERED: Ondansetron 4 MG Tab.DIS PO ONE (01:47)
== END 2023-09-17 01:58 | disposition home or self-care (01) ==
LOC: MW.ED 23:50
DX: M54.10 Radiculopathy, site unspecified (principal); E66.9 Obesity, unspecified; E03.9 Hypothyroidism, unspecified; Z88.2 Allergy status to sulfonamides; Z88.8 Allergy status to other drugs, medicaments and biological substances; Z79.899 Other long term (current) drug therapy; Z68.36 Body mass index [BMI] 36.0-36.9, adult
CPT/HCPCS: 99283; A9270

== ENCOUNTER 2024-11-03 09:42 | Emergency (ER) | payer BC, OTHER ==
[2024-11-03] MEDS: Acetaminophen 500 MG Tab PO ONE (10:18)
[2024-11-03] MEDS: Ibuprofen 600 MG Tab PO ONE (10:18)
== END 2024-11-03 11:20 | disposition home or self-care (01) ==
LOC: MW.ED 09:42
DX: U07.1 COVID-19 (principal); E78.00 Pure hypercholesterolemia, unspecified; E66.9 Obesity, unspecified; Z75.8 Other problems related to medical facilities and other health care; Z88.8 Allergy status to other drugs, medicaments and biological substances; Z68.38 Body mass index [BMI] 38.0-38.9, adult
CPT/HCPCS: 87428; 99284; A9270

== ENCOUNTER 2025-04-18 11:32 | Emergency (ER) | payer BC | END 2025-04-18 13:29 | disposition home or self-care (01) | LOC: MW.ED 11:32 | DX: L03.115 Cellulitis of right lower limb (principal); S91.311D Laceration without foreign body, right foot, subsequent encounter; E78.00 Pure hypercholesterolemia, unspecified; E66.9 Obesity, unspecified; W20.8XXD Other cause of strike by thrown, projected or falling object, subsequent encounter; Z88.8 Allergy status to other drugs, medicaments and biological substances; Z88.2 Allergy status to sulfonamides; Z79.899 Other long term (current) drug therapy; Z68.39 Body mass index [BMI] 39.0-39.9, adult | CPT/HCPCS: 99282; 99283 ==